=== PATIENT | female | born 1960 | race Caucasian/White ===

== ENCOUNTER → 2016-09-29 | Outpatient (CLI) | payer BC ==
[~2016-09-29] MED LIST: DIPH1TAB98 PO; OMEP20CA59 PO
--- NOTE | 2016-09-30 08:29 | MAMMOGRAPHY REPORT ---
BILATERAL DIGITAL SCREENING MAMMOGRAM TOMOSYNTHESIS WITH CAD: 09/29/2016 CLINICAL HISTORY: Routine screening examination. TECHNIQUE: Breast tomosynthesis in addition to standard 2D mammography was performed. Current study was also evaluated with a Computer Aided Detection (CAD) system. COMPARISON: Comparison is made to exams dated: 09/10/2014 mammogram, 03/15/2013 mammogram, 1 mammogram, 03/25/2010 mammogram - [facility], 01/15/2009, and 12/19/2007. BREAST COMPOSITION: The tissue of both breasts is extremely dense, which lowers the sensitivity of mammography. FINDINGS: The parenchymal pattern is unchanged. No developing mass, architectural distortion or clu ster of suspicious microcalcifications is seen in either breast. IMPRESSION: ACR BI-RADS CATEGORY 2: BENIGN There is no mammographic evidence of malignancy. A 1 year screening mammogram is recommended. The p atient will receive written notification of the results. Approximately 10% of breast cancers are not detected with mammography. A negative mammographic repor t should not delay biopsy if a clinically suggestive mass is present. Carey Allen M.D. ay/:09/29/2016 18:18:58 Histopathologist: Bouchra CHAVIS(Viky)([place]), [facility] letter sent: Normal 1/2 BI-RADS Code: ACR BI-RADS Category 2: Benign
== END | disposition home or self-care (01) ==
LOC: C.MAMM 09:12
PROVIDERS: ATTEND Obstetrics & Gynecology
DX: Z12.31 Encounter for screening mammogram for malignant neoplasm of breast (principal)

== ENCOUNTER → 2017-05-03 | Outpatient (CLI) | payer BC ==
[2017-05-03 16:55] LABS: URINE APPEARANCE CLEAR (CLEAR); URINE BILIRUBIN NEG (NEG); URINE COLOR YELLOW; URINE EPITHELIAL CELL AUTO >30 /lpf (0-5); URINE NITRITE NEG (NEG); URINE PH 5.5 (4.5-7.5); UROBILINOGEN NEG (NEG); ZZUR CULT IF INDIC CLEAN CATCH YES
[2017-05-03 16:56] LABS: MANUAL MICROSCOPIC REQUIRED? NO; REVIEW REQ? NO
== END | disposition home or self-care (01) ==
LOC: C.LABSPEC 16:16
PROVIDERS: ATTEND Obstetrics & Gynecology
DX: R32 Unspecified urinary incontinence (principal)

== ENCOUNTER → 2017-05-03 | Outpatient (CLI) | payer BC | END | disposition home or self-care (01) | LOC: C.PAPS 17:58 | PROVIDERS: ATTEND Obstetrics & Gynecology | DX: Z01.419 Encounter for gynecological examination (general) (routine) without abnormal findings (principal) ==

== ENCOUNTER → 2017-05-17 | Outpatient (CLI) | payer BC | END | disposition home or self-care (01) | LOC: C.LAB1850 16:34 | PROVIDERS: ATTEND Obstetrics & Gynecology | DX: N39.0 Urinary tract infection, site not specified (principal) ==

== ENCOUNTER → 2017-10-05 | Outpatient (CLI) | payer OTHER ==
--- NOTE | 2017-10-06 15:04 | MAMMOGRAPHY REPORT ---
BILATERAL DIGITAL SCREENING MAMMOGRAM TOMOSYNTHESIS WITH CAD: 10/05/2017 CLINICAL HISTORY: Routine screening. Patient has no complaints. TECHNIQUE: Breast tomosynthesis in addition to standard 2D mammography was performed. Current study was also evaluated with a Computer Aided Detection (CAD) system. COMPARISON: Comparison is made to exams dated: 09/29/2016 mammogram, 09/10/2014 mammogram, 03/15/2013 m ammogram, 03/26/2011 mammogram, 03/25/2010 mammogram - [facility], and 01/15/2009. BREAST COMPOSITION: The tissue of both breasts is heterogeneously dense, which may obscure small mas ses. FINDINGS: There are possible punctate microcalcifications in the upper outer anterior/subareolar rig ht breast, for which additional spot magnification views are recommended. Additionally, there is a p rominent lymph node in the superior right axilla on the MLO view measuring 2 cm. This maintains a fa tty hilum and could be within the range of normal although targeted right axillary ultrasound is also recommended. No other new suspicious mass, architectural distortion or cluster of microcalcifications is seen bila terally. IMPRESSION: ACR BI-RADS CATEGORY 0: INCOMPLETE EVALUATION: NEED ADDITIONAL IMAGING EVALUATION The possible punctate microcalcifications in the upper outer anterior/subareolar right breast and pro minent right axillary lymph node need additional evaluation. The patient will be called to schedule an appointment. Approximately 10% of breast cancers are not detected with mammography. A negative mammographic report should not delay biopsy if a clinically suggestive mass is present. Carey Allen M.D. ay/:10/05/2017 16:08:47 Linux Kernel Engineer: Lora CHAVIS(R)(M), [facility] letter sent: Addl Imaging 0 BI-RADS Code: ACR BI-RADS Category 0: Incomplete Evaluation: Need Additional Imaging Evaluation
== END | disposition home or self-care (01) ==
LOC: C.MAMM 07:33
PROVIDERS: ATTEND Obstetrics & Gynecology
DX: Z12.31 Encounter for screening mammogram for malignant neoplasm of breast (principal); R92.8 Other abnormal and inconclusive findings on diagnostic imaging of breast

== ENCOUNTER → 2017-10-19 | Outpatient (CLI) | payer OTHER ==
--- NOTE | 2017-10-20 14:23 | MAMMOGRAPHY REPORT ---
UNILATERAL RIGHT DIGITAL DIAGNOSTIC MAMMOGRAM AND TARGETED RIGHT ULTRASOUND: 10/19/2017 CLINICAL HISTORY: 56-year-old woman called back from screening mammography for possible right breast microcalcifications, and a prominent lymph node in the right axilla. TECHNIQUE: Spot magnification right CC and ML views were obtained. COMPARISON: Comparison is made to exams dated: 10/05/2017 mammogram, 09/29/2016 mammogram, 09/10/2014 nuno mogram, 03/15/2013 mammogram, 03/26/2011 mammogram, and 03/25/2010 mammogram - [facility]. BREAST COMPOSITION: The tissue of the right breast is heterogeneously dense, which may obscure small masses. FINDINGS: The spot magnification views of the right breast demonstrate faint punctate calcifications in a linear distribution in the slightly lateral, subareolar right breast, measuring 4.5 mm. When a ssessing the tomosynthesis images from 10/05/2017 these appear to be located just under the dermis. Co mparing back to prior mammograms they are increasingly conspicuous since 2014. Given the linear dist ribution they are indeterminate and although they could still possibly be located within the dermis, definitive characterization with excisional biopsy is recommended. Targeted ultrasound was performed in the right axilla to assess for the slightly enlarged lymph node seen on one of the MLO views. There are several lymph nodes identified in the right axilla, the larg est of which measures 17 mm, with cortical thickness within the range of normal at 2.8 mm. There is no current evidence of suspicious right axillary lymphadenopathy. Although this lymph node is slight ly prominent mammographically, it is most likely newly visualized as opposed to new and abnormal, but would recommend a follow-up right MLO mammogram and repeat right axillary ultrasound to ensure stabi lity in 6 months. IMPRESSION: ACR BI-RADS CATEGORY 4: SUSPICIOUS, TARGETED ULTRASOUND ACR BI-RADS CATEGORY 4: SUSPICIO US 1. There are faint microcalcifications in the linear distribution in the slightly lateral subareolar right breast which is not definitive if they are just below the dermis or could be within the dermis . However given the location and linear distribution they are indeterminate. Surgical consultation for excisional biopsy and preoperative mammogram guided needle localization is recommended. 2. A slightly prominent 2 cm lymph node in the right axilla is identified on targeted ultrasound and has a normal cortical thickness. Given that it is newly visualized mammographically and slightly mo re prominent than the remainder of the lymph nodes identified bilaterally, a short interval follow-up right MLO mammogram and repeat targeted ultrasound is recommended to ensure stability in 6 months. These results and recommendations were discussed with the patient at the time of the exam. Approximately 10% of breast cancers are not detected with mammography. A negative mammographic report should not delay biopsy if a clinically suggestive mass is present. Carey Allen M.D. ay/:10/19/2017 15:43:38 Production Support Supervisor: Nida CHAVIS(R)([place]), [facility] letter sent: Abnormal 4/5 BI-RADS Code: ACR BI-RADS Category 4: Suspicious Ultrasound BI-RADS: ACR BI-RADS Category 4: Suspici ous
== END | disposition home or self-care (01) ==
LOC: C.MAMM 09:26
PROVIDERS: ATTEND Obstetrics & Gynecology
DX: R92.0 Mammographic microcalcification found on diagnostic imaging of breast (principal)